=== PATIENT | female | born 1995 | race Caucasian/White ===

== ENCOUNTER 2017-05-23 21:51 | Emergency (ER) | payer OTHER ==
[2017-05-23 22:01] VITALS: TEMP 97.9; O2SAT 97
[2017-05-23] MEDS ORDERED: ONDANSETRON 4 MG/2 ML VIAL ONE (22:11)
[2017-05-23] MEDS ORDERED: fentaNYL 100 MCG/2 ML INJ ONE (22:15)
[2017-05-23] MEDS ORDERED: ONDANSETRON 4 MG/2 ML VIAL IVP ONE (22:16)
[2017-05-23] MEDS ORDERED: NS 1,000 ML IV ONE ×2 (22:16→22:22)
[2017-05-23] MEDS ORDERED: fentaNYL 100 MCG/2 ML INJ IVP ONE (22:16)
--- NOTE | 2017-05-23 22:20 | EDPHY ---
H & P Stated Complaint: c/o n/v/d/abd pain x 5 hrs Time Seen by Provider: 05/23/17 22:10 HPI/ROS: Chief Complaint: Abdominal pain, nausea, vomiting, diarrhea HPI: 21-year-old woman presenting with onset of abdominal pain, nausea, vomiting, and diarrhea which began about 4 o'clock this afternoon. She has vomited about 10 times. The multiple episodes of diarrhea. Has generalized abdominal aching. There has been no blood or coffee grounds in her vomit. No dark tarry stools or blood in her diarrhea. Last menstrual period started today. Has had subjective chills. No cough. No chest pain or shortness of breath. Pain is about an 8/10. It is constant. There are no aggravating or alleviating factors. ROS: 10 point Review of Systems is negative except as noted in the HPI. PMH: Depression Social History: No smoking, occasional alcohol alcohol, occasional marijuana Family History: non-contributory Physical Exam: Gen: Awake, Alert, No Distress HEENT: Nose: no rhinorrhea Eyes: PERRLA, EOMI Mouth: Dry mucous membranes Neck: Supple, no JVD Chest: nontender, lungs clear to auscultation Heart: S1, S2 normal, no murmur Abd: Soft, no lower abdominal tenderness, moderate right upper quadrant tenderness, no guarding Back: no CVA tenderness, no midline tenderness Ext: no edema, non-tender Skin: no rash Neuro: CN II-XII intact, Sensation grossly intact, Strength 5/5 in bilateral upper and lower extremities - Medical/Surgical History Hx Asthma: No Hx Chronic Respiratory Disease: No Hx Diabetes: No Hx Cardiac Disease: No Hx Renal Disease: No Hx Cirrhosis: No Hx Alcoholism: No Hx HIV/AIDS: No Hx Splenectomy or Spleen Trauma: No Other PMH: depression/anxiety - Social History Smoking Status: Never smoked Constitutional: Initial Vital Signs Temperature (C) 36.6 C 05/23/17 21:58 Heart Rate 109 H 05/23/17 21:58 Respiratory Rate 24 H 05/23/17 21:58 Blood Pressure 107/77 05/23/17 21:58 O2 Sat (%) 97 05/23/17 21:58 O2 Delivery Mode Room Air Allergies/Adverse Reactions: No Known Allergies Allergy (Unverified 05/23/17 22:01) Home Medications: Medication Instructions Recorded Zoloft 100mg (*) 05/23/17 Medical Decision Making ED Course/Re-evaluation: Patient is somewhat improved. His repeat abdominal examination demonstrates a soft benign abdomen. There is no tenderness, there is no guarding. Patient is improved after Toradol. She keeping. She is tolerating p. o.. No further vomiting or diarrhea. She has soft benign abdomen. Laboratory evaluations are unremarkable. Will discharge with oral Zofran, follow up as an outpatient, return for worsening. - Data Points Laboratory Results: Laboratory Results 05/23/17 22:20 05/23/17 22:20 05/23/17 05/23/17 05/23/17 23:39 22:47 22:20 WBC RBC Hgb Hct MCV MCH MCHC RDW Plt Count MPV Neut % (Auto) Lymph % (Auto) [place] % (Auto) Eos % (Auto) Baso % (Auto) Nucleat RBC Rel Count Absolute Neuts (auto) Absolute Lymphs (auto) Absolute Monos (auto) Absolute Eos (auto) Absolute Basos (auto) Absolute Nucleated RBC Immature Gran % Immature Gran # Sodium Potassium Chloride Carbon Dioxide Anion Gap BUN Creatinine Estimated GFR Glucose Calcium Total Bilirubin AST ALT Alkaline Phosphatase Total Protein Albumin Beta HCG, Qual NEGATIVE Urine Color YELLOW Urine Appearance HAZY Urine pH 5.0 (5.0-7.5) Ur Specific [place] 1.018 (1.002-1.030) Urine Protein 1+ H (NEGATIVE) Urine Ketones TRACE H (NEGATIVE) Urine Blood 3+ H (NEGATIVE) Urine Nitrate NEGATIVE (NEGATIVE) Urine Bilirubin NEGATIVE (NEGATIVE) Urine Urobilinogen NEGATIVE EU EU (0.2-1.0) Ur Leukocyte Esterase NEGATIVE (NEGATIVE) Urine RBC 50-182 /hpf H /hpf (0-3) Urine WBC 1-3 /hpf /hpf (0-3) Ur Epithelial Cells TRACE /lpf /lpf (NONE-1+) Urine Bacteria TRACE /hpf H /hpf (NONE SEEN) Urine Mucus 4+ /lpf H /lpf (NONE-1+) Urine Glucose NEGATIVE (NEGATIVE) Nasal Influenza A PCR NEGATIVE FOR FLU A (NEGATIVE) Nasal Influenza B PCR NEGATIVE FOR FLU B (NEGATIVE) 05/23/17 05/23/17 22:20 22:20 WBC 13.28 10^3/uL H 10^3/uL (3.80-9.50) RBC 5.00 10^6/uL 10^6/uL (4.18-5.33) Hgb 15.6 g/dL g/dL (12.6-16.3) Hct 42.8 % % (38.0-47.0) MCV 85.6 fL fL (81.5-99.8) MCH 31.2 pg pg (27.9-34.1) MCHC 36.4 g/dL g/dL (32.4-36.7) RDW 12.0 % % (11.5-15.2) Plt Count 313 10^3/uL 10^3/uL (150-400) MPV 9.6 fL fL (8.7-11.7) Neut % (Auto) 86.3 % H % (39.3-74.2) Lymph % (Auto) 5.7 % L % (15.0-45.0) [place] % (Auto) 6.6 % % (4.5-13.0) Eos % (Auto) 0.5 % L % (0.6-7.6) Baso % (Auto) 0.4 % % (0.3-1.7) Nucleat RBC Rel Count 0.0 % % (0.0-0.2) Absolute Neuts (auto) 11.46 10^3/uL H 10^3/uL (1.70-6.50) Absolute Lymphs (auto) 0.76 10^3/uL L 10^3/uL (1.00-3.00) Absolute Monos (auto) 0.88 10^3/uL H 10^3/uL (0.30-0.80) Absolute Eos (auto) 0.07 10^3/uL 10^3/uL (0.03-0.40) Absolute Basos (auto) 0.05 10^3/uL 10^3/uL (0.02-0.10) Absolute Nucleated RBC 0.00 10^3/uL 10^3/uL (0-0.01) Immature Gran % 0.5 % % (0.0-1.1) Immature Gran # 0.06 10^3/uL 10^3/uL (0.00-0.10) Sodium 145 mEq/L mEq/L (135-145) Potassium 4.1 mEq/L mEq/L (3.5-5.2) Chloride 109 mEq/L mEq/L (97-110) Carbon Dioxide 16 mEq/l L mEq/l (22-31) Anion Gap 20 mEq/L H mEq/L (8-16) BUN 16 mg/dL mg/dL (7-23) Creatinine 0.8 mg/dL mg/dL (0.6-1.0) Estimated GFR > 60 Glucose 156 mg/dL H mg/dL (70-100) Calcium 10.5 mg/dL H mg/dL (8.5-10.4) Total Bilirubin 1.4 mg/dL mg/dL (0.1-1.4) AST 23 IU/L IU/L (14-46) ALT 30 IU/L IU/L (9-52) Alkaline Phosphatase 94 IU/L IU/L (38-126) Total Protein 9.2 g/dL H g/dL (6.3-8.2) Albumin 5.3 g/dL H g/dL (3.5-5.0) Beta HCG, Qual Urine Color Urine Appearance Urine pH Ur Specific [place] Urine Protein Urine Ketones Urine Blood Urine Nitrate Urine Bilirubin Urine Urobilinogen Ur Leukocyte Esterase Urine RBC Urine WBC Ur Epithelial Cells Urine Bacteria Urine Mucus Urine Glucose Nasal Influenza A PCR Nasal Influenza B PCR Medications Given: Discontinued Medications Fentanyl (Sublimaze) 50 mcg IVP EDNOW ONE Stop: 05/23/17 22:17 Last Admin: 05/23/17 22:21 Dose: 50 mcg Sodium Chloride (Ns) 1,000 mls @ 0 mls/hr IV ONCE ONE; Wide Open PRN Reason: Protocol Stop: 05/23/17 22:17 Last Admin: 05/23/17 22:20 Dose: 1,000 mls Sodium Chloride (Ns) 1,000 mls @ 0 mls/hr IV ONCE ONE PRN Reason: Wide Open Stop: 05/23/17 22:23 Last Admin: 05/23/17 22:22 Dose: 1,000 mls Ketorolac Tromethamine (Toradol) 15 mg IVP EDNOW ONE Stop: 05/23/17 23:27 Last Admin: 05/23/17 23:34 Dose: 15 mg Lorazepam (Ativan Injection) 1 mg IVP EDNOW ONE Stop: 05/23/17 22:52 Last Admin: 05/23/17 22:52 Dose: 1 mg Ondansetron HCl (Zofran) 4 mg IVP EDNOW ONE Stop: 05/23/17 22:17 Last Admin: 05/23/17 22:20 Dose: 4 mg Departure - Departure Disposition: Home, Routine, Self-Care Clinical Impression: Gastroenteritis Condition: Good Instructions: Gastroenteritis (ED) Additional Instructions: You may take Zofran as needed for nausea and vomiting. Alternate acetaminophen (1000 mg) with ibuprofen (400 mg) every 4 hours as needed for fevers, chills, aches or pains. Return to the emergency depart for uncontrolled vomiting, fevers, chills, worsening abdominal pain, or any other concerns. Referrals: NONE *PRIMARY CARE P,. [Primary Care Provider] - As per Instructions Mike Reinoso MD [[facility] [place] Primary Care Provider] - As per Instructions
[2017-05-23 22:27] LABS: PLATELET COUNT 313 10^3/uL (150-400)
[2017-05-23] MEDS ORDERED: LORazepam 2 MG/ML INJ ONE (22:50)
[2017-05-23] MEDS ORDERED: LORazepam 2 MG/ML INJ IVP ONE (22:51)
[2017-05-23] MEDS ORDERED: KETOROLAC 15 MG/1 ML SDV IVP ONE (23:26)
[2017-05-24 00:06] VITALS: PULSE 96; RESP 16
[2017-05-24] MEDS ORDERED: ONDANSETRON 4MG PREPACK#2 BTL TAKEHOME ONE (00:52)
[2017-05-24 01:04] VITALS: BP 109/64
== END 2017-05-24 01:04 | disposition home or self-care (01) ==
DX: K52.9 Noninfective gastroenteritis and colitis, unspecified (principal); E86.9 Volume depletion, unspecified
CPT/HCPCS: 96374; J1885; J2060; J2405; J3010